=== PATIENT | male | born 1950 | race African-American/Black ===

== ENCOUNTER 2023-09-19 23:21 | Observation (INO) | payer OTHER ==
[2023-09-20 00:37] LABS: BASO % 0.6 % (0-2.0); EOS % 2.9 % (0-4.5); HEMATOCRIT 36.1 % (35.4-49); HEMOGLOBIN 11.9 GM/dL (11.7-16.9); LYMPH % 21.3 % (8-40); MCHC 32.8 g/dl (32.0-35.9); MEAN CELL VOLUME 82.2 fl (80-96); MEAN PLT VOLUME 9.2 fl (7.5-11.1); MONO % 7.8 % (3.8-10.2); NEUT % 67.4 % (42.8-82.8); PLATELET COUNT 181 10^3/uL (134-434); RBC 4.39 M/mm3 (4.00-5.60); RDW 14.9 % (11.9-15.9); WHITE BLOOD COUNT 7.8 K/mm3 (4.0-10.0)
[2023-09-20 00:45] LABS: INR 0.94 (0.83-1.09); PROTHROMBIN TIME (PATIENT) 10.6 SEC (9.7-13.0)
[2023-09-20 00:48] LABS: ACTIVATED PTT 34.2 SECONDS (25.2-36.5)
[2023-09-20 00:56] LABS: CHLORIDE 112 mmol/L (98-107); POTASSIUM 4.4 mmol/L (3.5-5.1); SODIUM 141 mmol/L (136-145)
[2023-09-20 00:58] LABS: CALCIUM 9.1 mg/dL (8.5-10.1)
[2023-09-20 00:59] LABS: ALBUMIN 3.9 g/dl (3.4-5.0); ANION GAP 8 mmol/L (4-13); BLOOD UREA NITROGEN 25.1 mg/dL (7-18); CO2 21 mmol/L (21-32); GLUCOSE,RANDOM 115 mg/dL (74-106); MAGNESIUM 1.9 mg/dL (1.8-2.4)
[2023-09-20 01:02] LABS: CREATININE 1.7 mg/dL (0.55-1.3); SGOT/AST 14 U/L (15-37); SGPT/ALT 16 U/L (13-61)
[2023-09-20 01:03] LABS: BILIRUBIN,TOTAL 0.3 mg/dL (0.2-1)
[2023-09-20 01:04] LABS: TOT PROT 8.1 g/dl (6.4-8.2)
[2023-09-20 01:05] LABS: ALK PHOS 82 U/L (45-117)
[2023-09-20] MEDS ORDERED: ENOXAPARIN NA (PORCINE) 80 MG/0.8 ML DISP.SYRIN SQ SCH ×2 (04:18→10:00)
[2023-09-20] MEDS ORDERED: levETIRAcetam 500 MG TABLET (FP) PO ONE (05:36)
[2023-09-20] MEDS ORDERED: ASPIRIN 81 MG CHEWABLE TABLETS ONE (05:37)
[2023-09-20] MEDS ORDERED: ATORVASTATIN CA 80 MG TABLET (FP) ONE (05:37)
[2023-09-20] MEDS ORDERED: ENOXAPARIN NA (PORCINE) 80 MG/0.8 ML DISP.SYRIN SQ ONE (05:37)
[2023-09-20] MEDS ORDERED: METOPROLOL TARTRATE 25 MG TABLET (FP) ONE (05:39)
[2023-09-20] MEDS: ENOXAPARIN NA (PORCINE) 80 MG/0.8 ML DISP.SYRIN SQ ONE (05:47)
[2023-09-20] MEDS: METOPROLOL TARTRATE 25 MG TABLET (FP) PO ONE (05:47)
[2023-09-20] MEDS: ASPIRIN 81 MG CHEWABLE TABLETS PO ONE ×3 (05:47→05:50)
[2023-09-20] MEDS: levETIRAcetam 500 MG TABLET (FP) PO SCH (05:47)
[2023-09-20] MEDS: ATORVASTATIN CA 80 MG TABLET (FP) PO ONE (05:47)
[2023-09-20] MEDS ORDERED: HEPARIN NA (PORCINE) 5,000 UNITS/ML 1ML VIAL SQ SCH (06:00)
[2023-09-20 06:30] LABS: HEMATOCRIT 36.7 % (35.4-49); HEMOGLOBIN 11.8 GM/dL (11.7-16.9); MCH 26.9 pg (25.7-33.7); MCHC 32.2 g/dl (32.0-35.9); MEAN CELL VOLUME 83.5 fl (80-96); MEAN PLT VOLUME 9.6 fl (7.5-11.1); PLATELET COUNT 175 10^3/uL (134-434); RBC 4.39 M/mm3 (4.00-5.60); RDW 14.6 % (11.9-15.9)
[2023-09-20 06:45] LABS: POTASSIUM 4.7 mmol/L (3.5-5.1)
[2023-09-20 06:49] LABS: BLOOD UREA NITROGEN 23.8 mg/dL (7-18); CALCIUM 9.3 mg/dL (8.5-10.1); MAGNESIUM 1.9 mg/dL (1.8-2.4)
[2023-09-20 06:51] LABS: CREATININE 1.5 mg/dL (0.55-1.3)
[2023-09-20 06:52] LABS: CHOLESTEROL 214 mg/dL (50-200); PHOSPHOROUS 3.3 mg/dL (2.5-4.9)
[2023-09-20 06:53] LABS: LDL CHOLESTEROL (ONLY SJRH) 150 mg/dL (5-100)
[2023-09-20 06:55] LABS: HDL CHOLESTEROL 65 mg/dL (40-60)
[2023-09-20] MEDS: METOPROLOL TARTRATE 25 MG TABLET (FP) PO SCH (10:04)
[2023-09-20] MEDS ORDERED: CLOPIDOGREL BISULFATE 75 MG TABLET (FP) ONE (10:06)
[2023-09-20] MEDS: CLOPIDOGREL BISULFATE 75 MG TABLET (FP) PO SCH (11:00)
[2023-09-20 18:14] VITALS: BMI 27.0
[2023-09-20] MEDS: PNEUMOC 20-VAL CONJ-DIP CRM/PF 0.5 ML SYRINGE IM ONE (23:00)
[2023-09-20] MEDS: ARTIFICIAL TEARS OPHTHALMIC DROPS OU PRN (23:01)
[2023-09-21 07:27] LABS: BASO % 0.5 % (0-2.0); EOS % 6.8 % (0-4.5); HEMATOCRIT 38.4 % (35.4-49); HEMOGLOBIN 12.3 GM/dL (11.7-16.9); LYMPH % 34.6 % (8-40); MCH 26.9 pg (25.7-33.7); MCHC 32.1 g/dl (32.0-35.9); MEAN CELL VOLUME 83.9 fl (80-96); MEAN PLT VOLUME 10.1 fl (7.5-11.1); MONO % 8.9 % (3.8-10.2); NEUT % 49.2 % (42.8-82.8); PLATELET COUNT 193 10^3/uL (134-434); RBC 4.58 M/mm3 (4.00-5.60); RDW 14.5 % (11.9-15.9); WHITE BLOOD COUNT 7.4 K/mm3 (4.0-10.0)
[2023-09-21 07:41] LABS: POTASSIUM 4.7 mmol/L (3.5-5.1)
[2023-09-21 07:45] LABS: CALCIUM 9.4 mg/dL (8.5-10.1)
[2023-09-21 07:48] LABS: ALBUMIN 3.8 g/dl (3.4-5.0)
[2023-09-21 07:49] LABS: BLOOD UREA NITROGEN 23.2 mg/dL (7-18)
[2023-09-21 07:50] LABS: BILIRUBIN,TOTAL 0.8 mg/dL (0.2-1)
[2023-09-21 07:52] LABS: CREATININE 1.4 mg/dL (0.55-1.3)
[2023-09-21] MEDS: ASPIRIN COATED 81 MG TABLET.EC PO SCH (09:46)
[2023-09-21] MEDS ORDERED: ENOXAPARIN NA (PORCINE) 80 MG/0.8 ML DISP.SYRIN SQ SCH (10:00)
[2023-09-21 11:44] VITALS: BP 158/97; PULSE 54; RESP 18; TEMP 97.3
[2023-09-21] MEDS ORDERED: ATORVASTATIN CA 80 MG TABLET (FP) PO SCH (22:00)
== END 2023-09-21 13:30 | disposition home or self-care (01) ==
LOC: JER 23:21 → INTOOBSV 09-20 02:12 → JERBED 09-20 02:12 → INTOOBSV 09-20 02:42 → OBSVTOIN 09-20 02:42 → J4W 09-20 15:42
PROVIDERS: ADMIT Internal Medicine; ATTEND Internal Medicine
PROC: 3E023GC Introduction of Other Therapeutic Substance into Muscle, Percutaneous Approach (ICD-10-PCS; principal; 2023-09-20)
DX: N17.9 Acute kidney failure, unspecified (principal); I25.10 Atherosclerotic heart disease of native coronary artery without angina pectoris; R06.09 Other forms of dyspnea; I12.9 Hypertensive chronic kidney disease with stage 1 through stage 4 chronic kidney disease, or unspecified chronic kidney disease; I25.2 Old myocardial infarction; N18.9 Chronic kidney disease, unspecified; E78.5 Hyperlipidemia, unspecified; R56.9 Unspecified convulsions; Z87.891 Personal history of nicotine dependence
CPT/HCPCS: 36415; 71046-TC-FY; 76775-TC; 80048; 80053; 80061; 82550; 82570; 83036; 83735; 84100; 84300; 84484; 85025; 85027; 85610; 85730; 93005; 93010; 93306-TC; 96372; 99285-25; G0378

== ENCOUNTER 2024-05-26 14:08 | Observation (INO) | payer OTHER ==
[2024-05-26] MEDS ORDERED: ACETAMINOPHEN INJECTION 100 ML ONE (14:57)
[2024-05-26 15:01] LABS: VENOUS BASE EXCESS -2.2 mmol/L (-2-2); VENOUS O2 SATURATION 52.6 % (70-80); VENOUS PCO2 36.9 mmHg (38-52); VENOUS PH 7.397 (7.310-7.410)
[2024-05-26 15:02] LABS: BASO % 0.1 % (0-2.0); EOS % 0.3 % (0-4.5); HEMATOCRIT 35.4 % (35.4-49); HEMOGLOBIN 11.5 GM/dL (11.7-16.9); LYMPH % 3.6 % (8-40); MCH 26.2 pg (25.7-33.7); MCHC 32.5 g/dl (32.0-35.9); MEAN CELL VOLUME 80.6 fl (80-96); MEAN PLT VOLUME 9.4 fl (7.5-11.1); PLATELET COUNT 164 10^3/uL (134-434); RBC 4.39 M/mm3 (4.00-5.60); RDW 14.7 % (11.9-15.9); WHITE BLOOD COUNT 8.5 K/mm3 (4.0-10.0)
[2024-05-26] MEDS: SODIUM CHLORIDE 1,000 ML IV STA (15:08)
[2024-05-26] MEDS: ACETAMINOPHEN 1000 MG/100 ML BAG IVPB ONE (15:08)
[2024-05-26 15:11] LABS: INR 1.12 (0.83-1.09); PROTHROMBIN TIME (PATIENT) 12.2 SEC (9.7-13.0)
[2024-05-26 15:13] LABS: ACTIVATED PTT 32.3 SECONDS (25.2-36.5)
[2024-05-26 15:30] LABS: CALCIUM 9.4 mg/dL (8.5-10.1)
[2024-05-26 15:31] LABS: ALBUMIN 4.2 g/dl (3.4-5.0); BLOOD UREA NITROGEN 21.6 mg/dL (7-18)
[2024-05-26 15:34] LABS: CREATININE 1.9 mg/dL (0.55-1.3)
[2024-05-26 15:35] LABS: BILIRUBIN,TOTAL 0.6 mg/dL (0.2-1); TOT PROT 8.4 g/dl (6.4-8.2)
[2024-05-26] MEDS ORDERED: CEFTRIAXONE 1 G/50 ML PREMIX 50 ML IVPB ONE (15:36)
[2024-05-26 15:41] LABS: LACTIC ACID 2.2 mmol/L (0.4-2.0)
[2024-05-26 15:45] LABS: EPI CELLS 2 /uL (0-25.1); HYALINE CASTS 0 /uL (0-3.1); URINE APPEARANCE CLEAR; URINE BACTERIA 0 /uL (0-1359); URINE BILIRUBIN NEGATIVE (NEGATIVE); URINE COLOR YELLOW; URINE GLUCOSE (UA) NEGATIVE (NEGATIVE); URINE KETONE TRACE (NEGATIVE); URINE LEUK ESTERASE NEGATIVE (NEGATIVE); URINE NITRITE NEGATIVE (NEGATIVE); URINE PROTEIN 1+ (NEGATIVE); URINE RBC 8 /uL (0-23.9); URINE UROBILINOGEN 0.2 mg/dL (0.2-1.0); URINE WBC 6 /uL (0-25.8)
[2024-05-26] MEDS: CEFTRIAXONE 1,000 MG in DEXTROSE 5%-WATER - 50 ML IVPB ONE (15:50)
[2024-05-26] MEDS ORDERED: OSELTAMIVIR PHOSPHATE 75 MG CAPSULE ONE ×2 (16:05→21:09)
[2024-05-26] MEDS ORDERED: VANCOMYCIN 1 GM PREMIX (F) 1 GM/200 ML BAG ONE (16:11)
[2024-05-26] MEDS: VANCOMYCIN 1,000 MG in DEXTROSE 5%-WATER - 250 ML IVPB ONE (16:23)
[2024-05-26] MEDS: VANCOMYCIN 1 GM PREMIX (F) 1 GM/200 ML BAG IVPB ONE (16:24)
[2024-05-26] MEDS: OSELTAMIVIR PHOSPHATE 75 MG CAPSULE PO ONE (16:29)
[2024-05-26] MEDS ORDERED: methylPREDNISolone NA SUCC 40 MG/1 ML VIAL ONE (18:06)
[2024-05-26] MEDS ORDERED: methylPREDNISolone NA SUCC 40 MG/1 ML VIAL IVPUSH SCH (18:13)
[2024-05-26] MEDS: methylPREDNISolone NA SUCC 40 MG/1 ML VIAL IVPB SCH (18:16)
[2024-05-26] MEDS ORDERED: ACETAMINOPHEN 325 MG TABLET (FP) PO PRN (18:19)
[2024-05-26] MEDS: CEFTRIAXONE 1 G/50 ML PREMIX 50 ML IVPB ONE (18:29)
[2024-05-26] MEDS ORDERED: HEPARIN NA (PORCINE) 5,000 UNITS/ML 1ML VIAL ONE (21:09)
[2024-05-26] MEDS: HEPARIN NA (PORCINE) 5,000 UNITS/ML 1ML VIAL SQ SCH (21:28)
[2024-05-26] MEDS: OSELTAMIVIR PHOSPHATE 75 MG CAPSULE PO SCH (21:28)
[2024-05-27] VITALS: RESP 18; BMI 27.3
[2024-05-27] MEDS: ALBUTEROL SO4 2.5/IPRATROPIUM 0.5 INH SOL 3 ML VIAL.NEB. NEB SCH (01:34)
[2024-05-27] MEDS: amLODIPine BESYLATE 5 MG TABLET (FP) PO SCH (09:15)
[2024-05-27] MEDS: ASPIRIN COATED 81 MG TABLET.EC PO SCH (09:15)
[2024-05-27] MEDS: levETIRAcetam 500 MG TABLET (FP) PO SCH (09:16)
[2024-05-27] MEDS ORDERED: CLOPIDOGREL BISULFATE 75 MG TABLET (FP) PO SCH (10:00)
[2024-05-27 12:03] VITALS: BP 127/107; PULSE 97; TEMP 99.1
[2024-05-27] MEDS ORDERED: OSELTAMIVIR PHOSPHATE 75 MG CAPSULE PO ONE (15:53)
[2024-05-27] MEDS ORDERED: ROSUVASTATIN CA 10 MG TABLET PO SCH (22:00)
== END 2024-05-27 18:22 | disposition home or self-care (01) ==
LOC: JER 14:08 → JERBED 17:05 → J6S 22:53
PROVIDERS: ADMIT Internal Medicine; ATTEND Internal Medicine
PROC: 3E03329 Introduction of Other Anti-infective into Peripheral Vein, Percutaneous Approach (ICD-10-PCS; principal; 2024-05-26)
PROC: 3E0337Z Introduction of Electrolytic and Water Balance Substance into Peripheral Vein, Percutaneous Approach (ICD-10-PCS; 2024-05-26)
PROC: 3E033NZ Introduction of Analgesics, Hypnotics, Sedatives into Peripheral Vein, Percutaneous Approach (ICD-10-PCS; 2024-05-26)
PROC: 3E013GC Introduction of Other Therapeutic Substance into Subcutaneous Tissue, Percutaneous Approach (ICD-10-PCS; 2024-05-26)
DX: J10.1 Influenza due to other identified influenza virus with other respiratory manifestations (principal); I12.9 Hypertensive chronic kidney disease with stage 1 through stage 4 chronic kidney disease, or unspecified chronic kidney disease; N18.9 Chronic kidney disease, unspecified; R06.02 Shortness of breath; R53.1 Weakness; G40.909 Epilepsy, unspecified, not intractable, without status epilepticus; E78.5 Hyperlipidemia, unspecified; I25.10 Atherosclerotic heart disease of native coronary artery without angina pectoris; I25.2 Old myocardial infarction; Z95.5 Presence of coronary angioplasty implant and graft; Z79.82 Long term (current) use of aspirin
CPT/HCPCS: 0241U-QW; 36415; 71045-TC-FY; 80053; 81003; 82803; 83605; 84484; 85025; 85610; 85730; 86850; 86900; 86901; 87040; 87086; 93005; 93010; 94640; 96361; 96365; 96367; 96372; 96375; 99285-25; G0378; J0131; J1644